=== PATIENT | male | born 1975 | race Caucasian/White ===

== ENCOUNTER 2024-05-06 06:13 | Day surgery (SDC) | payer OTHER ==
[2024-05-05 09:36] VITALS: BMI 33.0
[2024-05-06] MEDS ORDERED: fentaNYL PF 100 MCG/2 ML SYRINGE ONE (07:05)
[2024-05-06] MEDS ORDERED: PROPOFOL 20 ML ONE (07:06)
[2024-05-06] MEDS ORDERED: Midazolam HCl 2 mg/2 ml Vial ONE (07:06)
[2024-05-06] MEDS ORDERED: Lidocaine 2% PF 5 ML VIAL ONE (07:07)
[2024-05-06] MEDS ORDERED: Rocuronium Bromide 10 MG/ML (10ML VIAL) ONE (07:07)
[2024-05-06] MEDS ORDERED: Indomethacin 50 MG SUPP ONE (07:16)
[2024-05-06] MEDS ORDERED: Iopamidol 30 ML ONE (07:18)
[2024-05-06] MEDS ORDERED: Dexamethasone 4 mg/ml Vial ONE (07:27)
[2024-05-06] MEDS ORDERED: SUGAMMADEX SODIUM 200 MG/2 ML VIAL ONE (07:27)
[2024-05-06] MEDS ORDERED: Ondansetron PF 4 MG/2 ML Vial ONE (07:27)
[2024-05-06] MEDS ORDERED: LevoFLOXacin D5W 500 mg (100 mL) BAG ONE (07:44)
== END 2024-05-06 09:47 | disposition home or self-care (01) ==
LOC: SDC 06:13
PROVIDERS: ATTEND Internal Medicine Gastroenterology
PROC: 0FPD8DZ Removal of Intraluminal Device from Pancreatic Duct, Via Natural or Artificial Opening Endoscopic (ICD-10-PCS; principal; 2024-05-06)
DX: K83.8 Other specified diseases of biliary tract (principal); K85.90 Acute pancreatitis without necrosis or infection, unspecified; K75.9 Inflammatory liver disease, unspecified; K57.90 Diverticulosis of intestine, part unspecified, without perforation or abscess without bleeding; Z90.49 Acquired absence of other specified parts of digestive tract; Z98.84 Bariatric surgery status; Z79.899 Other long term (current) drug therapy
CPT/HCPCS: 74330; J1100; J1956; J2250; J2405; J2704; Q9967